=== PATIENT | male | born 1995 | race Caucasian/White ===

== ENCOUNTER 2016-07-21 20:33 | Emergency (ER) | payer SELFPAY ==
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
== END 2016-07-21 23:30 | disposition home or self-care (01) ==
LOC: CED 20:33 → CFTX 20:33
DX: S70.02XA Contusion of left hip, initial encounter (principal); F17.210 Nicotine dependence, cigarettes, uncomplicated; W17.89XA Other fall from one level to another, initial encounter; Y92.830 Public park as the place of occurrence of the external cause
CPT/HCPCS: 73502; 96372; 99283; J1885

== ENCOUNTER 2016-08-07 22:57 | Emergency (ER) | payer SELFPAY ==
--- NOTE | ~2016-08-07 | CR281 ---
[facility] A Service of [facility] & [facility] RADIOLOGY TEXT RESULTS PATIENT: SKIP HANCOCK LOCATION: [facility] : [birth year] UNIT #: [id number] AGE: [address]: Kyle Goetz MD SEX: M ORDER DR: [id number] [facility] [address] [place], [place] [address] [id number] E MR#: [id number] Acc #: [id number] NAME: SKIP HANCOCK : 1995 SEX: M STUDY DATE/TIME: UNIT: [facility] ROOM: STUDY DESCRIPTION: CR Wrist Min 3 View Lt Attending Physician: Kyle Goetz M.D. Ordering Physician: Renu Owens M.D. Primary Care Physician: Primary Care Physician No MEDICAL IMAGING REPORT This report is preliminary unless electronic signature is present EXAM Left wrist 08/08 at 0014 hours INDICATIONS Wrist pain for 2 weeks. Injury playing baseball. FINDINGS Wrist evaluation in multiple projections shows normal mineralization of the bony structures about the wrist and satisfactory articular relationship of the radius and ulna to the proximal carpal row and of the distal carpal segments to the metacarpal bases. There is no indication of fracture or dislocation, and no soft tissue radiopaque foreign body is present. No congenital defects are apparent. IMPRESSION Normal wrist. Dictated by... Ruslan Whiting Jr., M.D. THIS IS AN ELECTRONICALLY VERIFIED REPORT Ruslan Whiting Jr., M.D. at 08/08/2016 9:21 PM RLK/aida TD: 08/08/2016 11:54 JOB #: [id number] MEDICAL IMAGING REPORT Page 1 of 1 COPY
== END 2016-08-08 02:00 | disposition home or self-care (01) ==
LOC: CED 22:57 → CFTX 23:59 → CED 08-08 02:00
DX: S63.522A Sprain of radiocarpal joint of left wrist, initial encounter (principal); F17.200 Nicotine dependence, unspecified, uncomplicated; W19.XXXA Unspecified fall, initial encounter; Y93.64 Activity, baseball; Y92.830 Public park as the place of occurrence of the external cause
CPT/HCPCS: 29125; 73110; 99283

== ENCOUNTER 2016-08-14 16:12 | Emergency (ER) | payer SELFPAY | END 2016-08-14 18:04 | disposition home or self-care (01) | LOC: CED 16:12 → CFTX 16:12 | DX: S63.502A Unspecified sprain of left wrist, initial encounter (principal); F17.210 Nicotine dependence, cigarettes, uncomplicated; W19.XXXA Unspecified fall, initial encounter; Y92.009 Unspecified place in unspecified non-institutional (private) residence as the place of occurrence of the external cause | CPT/HCPCS: 99283 ==

== ENCOUNTER 2016-08-26 18:34 | Emergency (ER) | payer BC ==
--- NOTE | ~2016-08-26 | CR229 ---
[facility] A Service of [facility] & [facility] RADIOLOGY TEXT RESULTS PATIENT: SKIP HANCOCK LOCATION: [place] : [birth year] UNIT #: [id number] AGE: [address]: ENDY FIELDS APRN SEX: M ORDER DR: [id number] [facility] [address] [place], [place] [address] [id number] E MR#: [id number] Acc #: [id number] NAME: SKIP HANCOCK : 1995 SEX: M STUDY DATE/TIME: 08/26/2016 22:14 UNIT: [facility] ROOM: STUDY DESCRIPTION: CR Shoulder Min 2 View Lt Attending Physician: Endy Fields Aprn Ordering Physician: Endy Fields Aprn Primary Care Physician: Primary Care Physician No MEDICAL IMAGING REPORT This report is preliminary unless electronic signature is present EXAM Left shoulder HISTORY Left shoulder pain since yesterday after moving boxes. FINDINGS AP view with internal and external rotation of the shoulder girdle shows satisfactory relationship of the humeral head and glenoid fossa. The joint space is normal. There is no identifiable fracture or dislocation or bony destructive process about the shoulder girdle anatomy. The acromioclavicular joint is normal. There is no radiopaque foreign body in the region. IMPRESSION Normal shoulder. Dictated by... Cruz Moss M.D. THIS IS AN ELECTRONICALLY VERIFIED REPORT Cruz Moss M.D. at 08/28/2016 5:01 AM [place]OST[place]/nicolas TD: 08/27/2016 22:30 JOB #: [id number] MEDICAL IMAGING REPORT Page 1 of 1 COPY
== END 2016-08-26 23:28 | disposition home or self-care (01) ==
LOC: CFTX 18:34 → CED 18:34 → CFTX 20:41
DX: S46.912A Strain of unspecified muscle, fascia and tendon at shoulder and upper arm level, left arm, initial encounter (principal); F17.210 Nicotine dependence, cigarettes, uncomplicated; X50.0XXA Overexertion from strenuous movement or load, initial encounter; Y92.009 Unspecified place in unspecified non-institutional (private) residence as the place of occurrence of the external cause
CPT/HCPCS: 73030; 99283